=== PATIENT | female | born 1990 | race African-American/Black ===

== ENCOUNTER 2024-06-17 12:31 | Emergency (ER) | payer OTHER, SELFPAY ==
[2024-06-17 12:35] VITALS: BP 118/66; PULSE 94; RESP 14; TEMP 36.8; O2SAT 100; BMI 30.1
--- NOTE | 2024-06-17 12:57 | ED.EXTPRO ---
HPI - Extremity Problem <Clari Cordero PA-C - Last Filed: 06/17/24 13:27> General Chief complaint: Extremity Problem,Nontraumatic Stated complaint: px right glute moving to leg, 18 weeks Time Seen by Provider: 06/17/24 12:37 Source: patient Mode of arrival: Ambulatory History of Present Illness HPI Narrative: 34-year-old female currently 18 weeks presents with left gluteal pain for the last 10 days or so. She points to her left buttock. She states she is able to reproduce the pain with certain movements. She describes the pain as sharp when it comes on but is not constant. She states no disruption during sleep unless she turns over she does it slowly. The pain radiates down to about mid posterior thigh only. She is denying any back pain, no issues with bowel or bladder, no numbness, tingling, weakness, no abdominal pain, or vaginal discharge. She is full-time [employer], 16 years thus far and works at [employer]. 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 She does state she gets up and takes walks regularly however. Unfortunately she is required to wear the uniform which includes boots. This is her 1st time at [facility], she is under the care of a nurse extractor operator helper Korina here in [place]. Only treatment tried his heat, a massage gun which does help, she has taken no medication or tried ice. She is taking prenatals, she has a 20 week OB ultrasound scheduled with her extractor operator helper. Last menstrual cycle was February 12, 2024. She is with a 19-year-old. All other systems are reviewed and are negative. Related Data Allergies Allergy/AdvReac Type Severity Reaction Status Date / Time No Known Drug Allergies Allergy Verified 06/17/24 12:40 Review of Systems <Clari Cordero PA-C - Last Filed: 06/17/24 13:27> Review of Systems Narrative: All other systems reviewed and are negative. Patient History <Clari Cordero PA-C - Last Filed: 06/17/24 13:27> Social History Smoking Status: Unknown if ever smoked Smoking Status: Unknown if ever smoked alcohol intake frequency: holidays/special occasions only Substance Use Type: does not use Exam <Clari Cordero PA-C - Last Filed: 06/17/24 13:27> Initial Vital Signs Initial Vital Signs: Vital Signs Temperature 98.2 F 06/17/24 12:35 Pulse Rate 94 H 06/17/24 12:35 Respiratory Rate 14 06/17/24 12:35 Blood Pressure 118/66 06/17/24 12:35 Pulse Oximetry 100 06/17/24 12:35 Oxygen Delivery Method Room Air 06/17/24 12:35 Vital signs reviewed and are normal. Const Other: Smiling, athletic appearing, no distress. Normal gait. Resp Effort & Inspection: normal respiratory effort Auscultation: clear to auscultation bilaterally, no rales, no rhonchi and no wheezes Cardio Rate: regular rate Rhythm: regular rhythm Back/Spine/Pelvis Other: No focal bony midline tenderness, no interspace tenderness. No SI joint tenderness. Full active range of motion to the back, pain in the left buttock is reproduced with forward flexion, no guarding. Lateral bending and rotation are intact. Straight leg raise is negative bilaterally. Focal tenderness overlying the left buttock and piriformis. No mass, discoloration or guarding. Neuro Other: No focal neurologic deficits. Deep tendon reflexes are equal bilaterally 1+ at the knee jerk, ankle and plantar are downward. Sensory is grossly intact distally. Capillary refills normal. Extrem Other: Hip ROM is grossly intact, pain is reproduced with internal rotation against resistance. Mild discomfort with hip extension, no guarding. External rotation is intact, she is able to bring her ankle across the contralateral knee, and stress that piriformis. No ITB band tenderness. Hamstrings are slightly tight but no findings such as spasm. No guarding. Normal gait. Able to toe walk and heel walk. <Génesis Reyna DO - Last Filed: 06/23/24 07:42> Initial Vital Signs Initial Vital Signs: Vital Signs Temperature 98.2 F 06/17/24 12:35 Pulse Rate 94 H 06/17/24 12:35 Respiratory Rate 14 06/17/24 12:35 Blood Pressure 118/66 06/17/24 12:35 Pulse Oximetry 100 06/17/24 12:35 Oxygen Delivery Method Room Air 06/17/24 12:35 Course <Clari Cordero PA-C - Last Filed: 06/17/24 13:27> Vital Signs Vital signs: Vital Signs - 8 hr 06/17/24 12:35 Temperature 98.2 F Pulse Rate 94 H Respiratory Rate 14 Blood Pressure 118/66 Pulse Oximetry 100 Oxygen Delivery Method Room Air <Génesisbrisa ReynaDO - Last Filed: 06/23/24 07:42> Vital Signs Vital signs: Vital Signs - 8 hr 06/17/24 12:35 Temperature 98.2 F Pulse Rate 94 H Respiratory Rate 14 Blood Pressure 118/66 Pulse Oximetry 100 Oxygen Delivery Method Room Air MDM - Extremity (Nontraumatic) <Clari Cordero PA-C - Last Filed: 06/17/24 13:27> Medical Records Medical records narrative: No medical records available on site. This is her 1st visit to [facility]. MDM Narrative Medical decision making narrative: Her pain is reproducible, slightly the piriformis compressing her sciatic nerve intermittently. No focal deficits, discussed using ice directly on the buttocks, 10-15 minutes at a time several times a day. I believe she would benefit from a soft shoe profile and [place] so I have written her a note for this the [employer] is quite strict when it comes to uniform, also she smith quite a bit of dizziness from her office so I will let her command no and maybe they can accommodate her a bit closer. Discussed avoiding NSAIDs due to her gestational age, acetaminophen is a better choice. She has her massage gun, I have also placed in her discharge papers a request for physical therapy evaluation and treatment if my recollection serves me they [place] is [place]. If she requires a formal prescription she certainly can obtain this from her PCP. We discussed red flag warning signs, fall precautions, and of course following up with her PCP in the interim. Discharge Plan Departure Patient Disposition: Home Clinical Impression: Piriformis muscle pain Instructions: Piriformis Syndrome Activity Restrictions/Additional Instructions: I chose this handout as it has a good overview of the anatomy that we discussed, I would like you to try ice 10-15 minutes at a time directly over your pain. You may continue the massage gun, I am hopeful physical therapy will accept my referral for evaluation and treatment, also I am hopeful that your command will assist you with parking closer to your office, and I highly recommend a soft shoe profile as the boots are not helping your current injury. Please continue to take many work breaks, stand and stretch, walking is quite good, avoid anything that causes significant pain. Avoid nonsteroidal anti-inflammatory such as ibuprofen also known as Advil during your at this point, Tylenol is safe however. Heating pad is helpful to loosen things up but please alternate ice. I think he will find gradual improvement over time. Avoid the butterfly stretch, do a single leg stretch I demonstrated. Please seek medical attention if anything changes or worsens. Referrals: [facility] [Outside] - As soon as possible (Physical therapy evaluation and treatment for left piriformis pain) Stand Alone Forms: Patient Portal/API/Survey, Work Release Note ED Sign-out <Génesis Reyna DO - Last Filed: 06/23/24 07:42> Cosign ED Attending Amelia Attestation: I was immediately available in the department for consultation.
--- NOTE | 2024-06-17 13:02 | PC.NURSE ---
Pt seen and assessed by provider prior to this RN arrival.
[2024-06-17 13:28] VITALS: BP 119/66; PULSE 85; RESP 16; O2SAT 100
== END 2024-06-17 13:29 | disposition home or self-care (01) ==
PROVIDERS: Emergency Provider Physician Assistant Medical
DX: O26.892 Other specified pregnancy related conditions, second trimester (principal); M54.89 Other dorsalgia; Z3A.18 18 weeks gestation of pregnancy
CPT/HCPCS: 99281

== ENCOUNTER → 2024-06-30 13:53 | Outpatient (CLI) | payer OTHER, SELFPAY ==
--- NOTE | 2024-06-30 13:56 | DI.US.S_ITS ---
PROCEDURE: US OB >= 14 WEEKS FETUS INDICATIONS: 20 week anatomy scan OUTSIDE/PRIOR DATING DATA: Last menstrual period (LMP): 02/12/2024. LMP-based estimated date of delivery (OLIVE): 11/18/2024. First dating scan (date and location): 06/30/2024. Estimated date of delivery (OLIVE) from first dating scan: 11/17/2024. The calculations are made using the clinical OLIVE of 11/18/2024. TECHNIQUE: Real-time scanning was performed of the fetus, with image documentation and biometric measurements. Endovaginal scanning: Not performed COMPARISON: None. FINDINGS: General: A single living intrauterine gestation is present. Presentation: Variable. Placenta: Placental position is posterior, without previa. Amniotic fluid index: 18.8 cm, normal range is 5-24 cm. Single deepest vertical pocket is 6.1 cm. heart rate: 144 beats per minute. Maternal cervical canal: 5.7 cm long. Normal lower limit is 2.5 cm. biometrics: Biparietal diameter: 4.6 cm, 20 weeks 0 days Head circumference: 17.8 cm, 20 weeks 2 days Abdominal circumference: 14.3 cm, 19 weeks 4 days Femur length: 3.3 cm, 20 weeks 1 day Clinically estimated gestational age: 19 weeks 6 days Composite gestational age from present scan: 20 weeks 0 days Estimated weight and percentile: 321 g, 49th percentile Anatomic survey: Neuro: Ventricles are non-dilated at less than 10 mm. Cisterna magna is normal at 3-11 mm. Cerebellum is normal in size and morphology. Nuchal skin fold: Normal at less than 6 mm between 14-21 weeks gestational age. Face: Nose and lips, facial profile are normal. Spine: No evidence for spina bifida. Heart: 4-chambered heart is present, with normal ventricular outflow tracts. Diaphragm: Diaphragm is intact. Stomach: Left-sided stomach is present. Kidneys: No hydronephrosis. Normal is less than 5 mm in 2nd trimester, less than 7 mm in 3rd trimester. Cord: 3-vessel cord has orthotopic insertion. Bladder: Normal in size. Extremities: All 4 extremities identified. IMPRESSION: 1. [place] living intrauterine at 20 weeks 0 days based on today's ultrasound. Fetus is in the 49th percentile for weight. 2. Normal placenta and amniotic fluid. 3. Normal and complete anatomic survey. We strive to produce accurate, complete, and clear reports of imaging services. To assist us in improving patient care, this report was composed using standard report templates and voice recognition software. Therefore, it may contain abnormal punctuation, insertions and/or omissions. Occasional wrong-word or sound-alike substitutions may occur. Though we review the report and make efforts to correct it, we do recommend that the report be read carefully in proper context to recognize any text inaccuracies. Dictated by: Deion Mark M.D. on 06/30/2024 at 20:55 Approved by: Deion Mark M.D. on 06/30/2024 at 21:07
== END ==
PROVIDERS: Referring Provider Advanced Practice Midwife; Visit Provider Advanced Practice Midwife
DX: O09.522 Supervision of elderly multigravida, second trimester (principal); Z3A.22 22 weeks gestation of pregnancy
CPT/HCPCS: 76811

== ENCOUNTER → 2024-09-07 16:01 | Outpatient (ROUT) | payer OTHER, SELFPAY | PROVIDERS: Visit Provider Nurse Practitioner Obstetrics & Gynecology | DX: O99.019 Anemia complicating pregnancy, unspecified trimester (principal) | CPT/HCPCS: 86900; 86901 ==

== ENCOUNTER → 2024-11-04 12:32 | Outpatient (CLI) | payer OTHER, SELFPAY ==
[2024-11-04 13:06] LABS: Add Manual Diff / Slide Review NO; Basophils Absolute Auto 0 /uL (0-100); Basophils Percent Auto 0.3 % (0-2); Eosinophils Absolute Auto 100 /uL (0-450); Eosinophils Percent Auto 0.7 % (2-4); Hematocrit 32.5 % (36-46); Hemoglobin 10.6 g/dL (12.0-16.0); Lymphocytes Absolute Auto 1500 /uL (1100-4500); Mean Corpuscular HGB Conc 32.8 % (30-36); Mean Corpuscular Hemoglobin 26.9 PG (26-34); Mean Corpuscular Volume 82.2 fL (80-100); Monocytes Absolute Auto 700 /uL (0-900); Monocytes Percent Auto 6.8 % (3-14); Neutrophils Absolute Auto 7900 /uL (1500-7000); Neutrophils Percent Auto 77.2 % (50-75); Platelet Count 320 X10^3/uL (150-400); Red Blood Cell Count 3.95 X10^6/uL (4.0-5.2); Red Cell Distribution Width 17.4 % (11.6-14.8); White Blood Cell Count 10.3 X10^3/uL (4.5-11.0)
[2024-11-04 13:24] LABS: Alanine Aminotransferase 23 IU/L (<35); Albumin 3.6 g/dL (3.5-5.0); Albumin Globulin Ratio 1.1 (1.0-2.8); Alkaline Phosphatase 132 U/L (38-126); Aspartate Aminotransferase 30 IU/L (14-36); BUN Creatinine Ratio 11.1 (6-22); Bilirubin Total 0.7 mg/dL (0.2-1.3); Blood Urea Nitrogen 8 mg/dL (7-17); Calcium 9.3 mg/dL (8.4-10.2); Carbon Dioxide 20 mmol/L (22-32); Chloride 105 mmol/L (98-107); Estimated Glomerular Filt Rate > 60 mL/min (>60); Globulin 3.4 g/dL (1.7-4.1); Glucose 99 mg/dL (70-100); HEMOLYSIS < 15 (0-50); Potassium 3.6 mmol/L (3.4-5.1); Sodium 133 mmol/L (137-145)
[2024-11-05 15:44] LABS: Creatinine Urine Random 168.23 mg/dL; Protein (Total) Urine Random 11 mg/dL (0-12); Protein Creatinine Ratio Urine 0.06 GRAM/24H
== END ==
PROVIDERS: Referring Provider Nurse Practitioner Obstetrics & Gynecology; Visit Provider Nurse Practitioner Obstetrics & Gynecology
DX: Z34.93 Encounter for supervision of normal pregnancy, unspecified, third trimester (principal); R03.0 Elevated blood-pressure reading, without diagnosis of hypertension
CPT/HCPCS: 36415; 80053; 82570; 84156; 85025

== ENCOUNTER 2024-11-09 14:35 | Outpatient (CLI) | payer OTHER, SELFPAY ==
[2024-11-09 15:14] LABS: Add Manual Diff / Slide Review NO; Basophils Absolute Auto 100 /uL (0-100); Basophils Percent Auto 0.5 % (0-2); Eosinophils Absolute Auto 100 /uL (0-450); Eosinophils Percent Auto 1.2 % (2-4); Hematocrit 32.7 % (36-46); Hemoglobin 10.9 g/dL (12.0-16.0); Lymphocytes Absolute Auto 1900 /uL (1100-4500); Lymphocytes Percent Auto 17.1 % (25-40); Mean Corpuscular HGB Conc 33.4 % (30-36); Mean Corpuscular Hemoglobin 27.2 PG (26-34); Mean Corpuscular Volume 81.6 fL (80-100); Monocytes Absolute Auto 600 /uL (0-900); Monocytes Percent Auto 5.8 % (3-14); Neutrophils Absolute Auto 8200 /uL (1500-7000); Neutrophils Percent Auto 75.4 % (50-75); Platelet Count 297 X10^3/uL (150-400); Red Blood Cell Count 4.01 X10^6/uL (4.0-5.2); Red Cell Distribution Width 17.4 % (11.6-14.8); White Blood Cell Count 10.9 X10^3/uL (4.5-11.0)
[2024-11-09 15:33] LABS: Alanine Aminotransferase 23 IU/L (<35); Albumin 3.8 g/dL (3.5-5.0); Albumin Globulin Ratio 1.1 (1.0-2.8); Alkaline Phosphatase 148 U/L (38-126); Aspartate Aminotransferase 32 IU/L (14-36); BUN Creatinine Ratio 14.9 (6-22); Bilirubin Total 0.7 mg/dL (0.2-1.3); Blood Urea Nitrogen 10 mg/dL (7-17); Calcium 9.7 mg/dL (8.4-10.2); Carbon Dioxide 18 mmol/L (22-32); Chloride 105 mmol/L (98-107); Estimated Glomerular Filt Rate > 60 mL/min (>60); Globulin 3.5 g/dL (1.7-4.1); Glucose 119 mg/dL (70-100); HEMOLYSIS < 15 (0-50); Potassium 3.7 mmol/L (3.4-5.1); Sodium 134 mmol/L (137-145); Total Protein 7.3 g/dL (6.3-8.2); Uric Acid 4.4 mg/dL (2.5-6.2)
[2024-11-09 15:49] LABS: Creatinine Urine Random 91.57 mg/dL; Protein (Total) Urine Random 11 mg/dL (0-12); Protein Creatinine Ratio Urine 0.12 GRAM/24H
--- NOTE | 2024-11-09 16:21 | P.TNLD_ITS ---
Visit Information Visit Information Date of evaluation: 11/09/24 Primary OB Provider: Korina Davila Reason for Evaluation: Yes other Comments/Additional reasons for admission: Sent over from clinic after elevated BP Diastolic in the 90's. Here for serial BP, PET panel and NST. Denies headache, right epigastric pain, or visual changes. Vital Signs Vital Signs: VS: BPs 141/87, 135/86, 135/87, HR 98, O2 sat 98 PFSH Medical History (Updated 11/09/24 @ 16:35 by Korina Davila CNM, GONZALEZ) Genital HSV Surgical History History of removal of ovarian cyst Family History (Updated 11/09/24 @ 16:35 by Korina Davila CNM, GONZALEZ) Grandmother Hypertension Diabetes mellitus Mother Thyroid condition Social History (Updated 11/09/24 @ 16:36 by Korina Davila CNM, GONZALEZ) marital status: number of children: 1 household members: spouse lives independently: Yes housing: house do you feel safe at home: Yes Smoking Status: Never smoker second hand exposure: No alcohol intake: former substance use type: does not use Review of Systems Review of Systems ROS: Yes All systems reviewed with the patient and are negative except as otherwise documented Exam HENMT Head: normal to inspection and normocephalic Ears: external ears normal Nose: external nose normal Mouth: oral mucosae normal and lip normal Eyes General: appearance normal, both eyes and all related structures Alignment and Position: alignment normal Neck Neck: normal visual inspection Resp Effort & Inspection: normal respiratory effort Skin General: no rashes or lesions noted Neuro General: patient alert, patient oriented x3, gait normal and moves all extremities Extrem General: normal to inspection and full ROM Objective Labs 11/09/24 15:00 11/09/24 15:00 Labs: Laboratory Results - last 24 hr 11/09/24 11/09/24 15:00 15:05 WBC 10.9 RBC 4.01 Hgb 10.9 L Hct 32.7 L MCV 81.6 MCH 27.2 MCHC 33.4 RDW 17.4 H Plt Count 297 Neut % (Auto) 75.4 H Lymph % (Auto) 17.1 L [place] % (Auto) 5.8 Eos % (Auto) 1.2 L Baso % (Auto) 0.5 Neut # (Auto) 8200 H Lymph # (Auto) 1900 [place] # (Auto) 600 Eos # (Auto) 100 Baso # (Auto) 100 Sodium 134 L Potassium 3.7 Chloride 105 Carbon Dioxide 18 L BUN 10 Creatinine 0.67 Estimated GFR > 60 BUN/Creatinine Ratio 14.9 Glucose 119 H Uric Acid 4.4 Calcium 9.7 Total Bilirubin 0.7 AST 32 ALT 23 Alkaline Phosphatase 148 H Total Protein 7.3 Albumin 3.8 Globulin 3.5 Albumin/Globulin Ratio 1.1 U Random Total Protein 11 Urine Creatinine 91.57 Protein/Creatinin Ratio 0.12 Evaluation Evaluation Baseline heart rate: 145 Variability: Moderate (11-25) monitor accelerations: Present Monitor Decelerations: Absent Contraction Frequency (minutes): 7 (denies) Category of Tracing: Reactive Diagnosis, Plan/Disposition Plan/Disposition Plan: A: 34 yo at 38 weeks 5 days Elevated BP in office Reactive NST PET panel normal P: Instructed to call in any changes in vision, having right upper quadrant abdominal pain or headache unrelieved by tylenol. Keep CNM appt in one week, call if need seen sooner.
== END 2024-11-09 16:20 | disposition home or self-care (01) ==
LOC: LABOR 15:21 → OB 11-10 07:01
PROVIDERS: Nurse Practitioner Obstetrics & Gynecology; Referring Provider Advanced Practice Midwife; Visit Provider Advanced Practice Midwife
DX: O26.893 Other specified pregnancy related conditions, third trimester (principal); R03.0 Elevated blood-pressure reading, without diagnosis of hypertension; Z3A.38 38 weeks gestation of pregnancy
CPT/HCPCS: 36415; 59025; 80053; 84550; 85025; G0378; G0379

== ENCOUNTER 2024-11-13 15:40 | Outpatient (CLI) | payer OTHER, SELFPAY ==
[2024-11-13 15:58] LABS: Add Manual Diff / Slide Review NO; Basophils Absolute Auto 0 /uL (0-100); Basophils Percent Auto 0.3 % (0-2); Eosinophils Absolute Auto 100 /uL (0-450); Eosinophils Percent Auto 0.6 % (2-4); Hematocrit 31.7 % (36-46); Hemoglobin 10.6 g/dL (12.0-16.0); Lymphocytes Absolute Auto 2000 /uL (1100-4500); Lymphocytes Percent Auto 18.9 % (25-40); Mean Corpuscular HGB Conc 33.4 % (30-36); Mean Corpuscular Hemoglobin 27.7 PG (26-34); Mean Corpuscular Volume 82.7 fL (80-100); Monocytes Absolute Auto 1000 /uL (0-900); Monocytes Percent Auto 9.4 % (3-14); Neutrophils Absolute Auto 7500 /uL (1500-7000); Neutrophils Percent Auto 70.8 % (50-75); Platelet Count 293 X10^3/uL (150-400); Red Blood Cell Count 3.84 X10^6/uL (4.0-5.2); Red Cell Distribution Width 17.7 % (11.6-14.8); White Blood Cell Count 10.6 X10^3/uL (4.5-11.0)
[2024-11-13 16:13] LABS: Alanine Aminotransferase 20 IU/L (<35); Albumin 3.4 g/dL (3.5-5.0); Albumin Globulin Ratio 1.2 (1.0-2.8); Alkaline Phosphatase 159 U/L (38-126); Aspartate Aminotransferase 27 IU/L (14-36); BUN Creatinine Ratio 11.9 (6-22); Bilirubin Total 0.5 mg/dL (0.2-1.3); Blood Urea Nitrogen 7 mg/dL (7-17); Calcium 9.4 mg/dL (8.4-10.2); Carbon Dioxide 18 mmol/L (22-32); Chloride 106 mmol/L (98-107); Estimated Glomerular Filt Rate > 60 mL/min (>60); Globulin 2.9 g/dL (1.7-4.1); Glucose 93 mg/dL (70-100); HEMOLYSIS < 15 (0-50); Sodium 131 mmol/L (137-145); Total Protein 6.3 g/dL (6.3-8.2); Uric Acid 4.1 mg/dL (2.5-6.2)
[2024-11-13 16:29] LABS: Creatinine Urine Random 53.34 mg/dL; Protein (Total) Urine Random 16 mg/dL (0-12); Protein Creatinine Ratio Urine 0.29 GRAM/24H
--- NOTE | 2024-11-13 17:29 | P.TNLD_ITS ---
Visit Information Visit Information Date of evaluation: 11/13/24 Primary OB Provider: Briseyda Blanchard On-call OB Provider: Briseyda Blanchard Reason for Evaluation: Yes other Comments/Additional reasons for admission: Serial BPs, NST and preeclampsia labs Vital Signs Vital Signs: Annabelle is a 34 y.o. at 39 weeks 2 days by sure LMP 02/12/24 here for evaluation of blood pressure. She was seen in clinic this afternoon with elevated BP readings. No severe range blood pressures. No headache, visual changes, right upper quadrant abdomen pain or swelling. Feeling good FM. No cramping, VB or leaking of fluid. Accompanied by her partner. VS: HR 95, temp 36.3C temporal Serial BPs 144/93, 144/90, 138/92, 146/85, 149/90 PFSH Medical History (Updated 11/13/24 @ 17:50 by Briseyda Blanchard CNM) Genital HSV Surgical History History of removal of ovarian cyst Family History (Updated 11/09/24 @ 16:35 by Korina Davila CNM, GONZALEZ) Grandmother Hypertension Diabetes mellitus Mother Thyroid condition Social History (Updated 11/09/24 @ 16:36 by Korina Davila CNM, GONZALEZ) marital status: number of children: 1 household members: spouse lives independently: Yes housing: house do you feel safe at home: Yes Smoking Status: Never smoker second hand exposure: No alcohol intake: former substance use type: does not use Review of Systems Review of Systems ROS: Yes All systems reviewed with the patient and are negative except as otherwise documented Exam Vital Signs (past 8 hours): see above Presentation: vertex Objective Labs 11/13/24 15:45 11/13/24 15:45 Labs: Laboratory Results - last 24 hr 11/13/24 15:45 WBC 10.6 RBC 3.84 L Hgb 10.6 L Hct 31.7 L MCV 82.7 MCH 27.7 MCHC 33.4 RDW 17.7 H Plt Count 293 Neut % (Auto) 70.8 Lymph % (Auto) 18.9 L N[place]olls % (Auto) 9.4 Eos % (Auto) 0.6 L Baso % (Auto) 0.3 Neut # (Auto) 7500 H Lymph # (Auto) 2000 [place]oll[place] # (Auto) 1000 H Eos # (Auto) 100 Baso # (Auto) 0 Sodium 131 L Potassium 4.0 Chloride 106 Carbon Dioxide 18 L BUN 7 Creatinine 0.59 Estimated GFR > 60 BUN/Creatinine Ratio 11.9 Glucose 93 Uric Acid 4.1 Calcium 9.4 Total Bilirubin 0.5 AST 27 ALT 20 Alkaline Phosphatase 159 H Total Protein 6.3 Albumin 3.4 L Globulin 2.9 Albumin/Globulin Ratio 1.2 U Random Total Protein 16 H Urine Creatinine 53.34 Protein/Creatinin Ratio 0.29 Evaluation Evaluation Baseline heart rate: 140 Variability: Moderate (11-25) monitor accelerations: Absent Monitor Decelerations: Absent Contraction Frequency (minutes): 5 (2-6) Category of Tracing: Reactive Cervical dilation (cm): 1 Cervical effacement (%): 30 station: -2 Diagnosis, Plan/Disposition Final Diagnosis (1) Gestational hypertension: Status: Acute Plan/Disposition Plan: A: Term primipara Advanced maternal age Chronic anemia HSV- no current outbreak Gestational hypertension Reactive NST P: Recommend induction of labor for GHTN. D/t certified nurses aide, unable to admit and actively manage at this time. Informed consent for IOL obtained and reviewed options with Annabelle. Annabelle agreed to Harmon balloon placement and requested to go home and collect her belongings. Given stability of her labs and BP and no neurologic sx, this is a reasonable option. Harmon balloon placed and Annabelle to return for admission in 2-3 hours. Reviewed case with OB backup/ Dr Joseph who agreed with assessment and plan of care. OB Disposition: home
== END 2024-11-13 17:25 | disposition home or self-care (01) ==
LOC: LABOR 16:04 → OB 11-16 09:17
PROVIDERS: Referring Provider Advanced Practice Midwife; Visit Provider Advanced Practice Midwife
DX: O13.3 Gestational [pregnancy-induced] hypertension without significant proteinuria, third trimester (principal); O09.523 Supervision of elderly multigravida, third trimester; O99.013 Anemia complicating pregnancy, third trimester; D64.9 Anemia, unspecified; Z3A.39 39 weeks gestation of pregnancy
CPT/HCPCS: 59025; 80053; 84550; 85025; G0378; G0379

== ENCOUNTER 2024-11-13 20:50 | Inpatient (IN) | payer OTHER, SELFPAY ==
--- NOTE | 2024-11-13 21:02 | P.HPOB_ITS ---
OB HPI Date/Time Date of admission: 11/13/24 Date Patient Seen: 11/13/24 Time Patient Seen: 21:02 History of Present Condition Chief complaint: Induction : 2 Para: 1 Estimated Date of Delivery: 11/18/24 Estimated Gestational Age (weeks): 39.2 Narrative: Annabelle Mjaor is a 34 year old female at 39wks 2days by sure LMP here for IOL for gestational hypertension. [place] uncomfortable cramping after Harmon balloon placement and has noticed some bloody discharge. Cramping eased prior to arrival back at the hospital. +FM. No leaking fluid, PARK, vision changes, RUQ pain or increased edema. care with CNMs complicated by chronic anemia. Planning low intervention , though she is open to interventions as recommended. is present and supportive. Indications Indication for induction OB: gestational HTN/pre-eclampsia History of Present care: good care, initiated at week # (16), number of visits (10) and pounds weight gain (24) Dating criteria: based on LMP only Ultrasounds: normal mid trimester US Obstetrical complications: none Medical complications: other (anemia) Preadmission Labs Blood type: O (+) positive -: Antibody screen: negative, GBS status: positive, HBsAG: negative, HIV: negative, HSV 2: positive and RPR/VDLR: negative -: Chlamydia screen: not detected and Gonorrhea screen: not detected -: Rubella: immune and Varicella: immune HCT: 32.5 HCAB: negative Cell-free DNA: Negative x3 1 hr GTT: 100 Prior (ies) History: 1- 03/30/2015: (vaginal delivery) @ 39wks, male, Cristian Capps, Epidural, 7lbs, 7oz 2- TAB () Hx # Term Pregnancies: 1 Hx # Pregnancies: 0 Number of Living Children: 1 Multiple births: 0 Spontaneous abortions: 0 Ectopic pregnancies: 0 Elective abortions: 1 Evaluation Evaluation Baseline heart rate: 145 Variability: Average (6-10) monitor accelerations: Present Monitor Decelerations: Absent Contraction Frequency (minutes): 4 Uterine Contraction Intensity: Mild Status: Category l Dilation (cm): 4.5 Effacement (%): 60 Dilation: 3-4 cm Effacement: 60-70% station: -2 Position of cervix: posterior Consistency: soft De Santiago score: 7 Comments: Harmon balloon manually removed from vagina prior to exam PFSH Medical History Genital HSV Surgical History History of removal of ovarian cyst Family History Grandmother Hypertension Diabetes mellitus Mother Thyroid condition Social History marital status: number of children: 1 household members: spouse lives independently: Yes housing: house do you feel safe at home: Yes Smoking Status: Never smoker second hand exposure: No alcohol intake: former substance use type: does not use Meds Home Medications and Allergies Home Medications Medication Instructions Recorded Confirmed Type aspirin 81 mg tablet 81 mg PO DAILY 11/13/24 11/13/24 History vitamin with calcium 1 tab PO DAILY 11/13/24 11/13/24 History no.72-iron 27 mg-folic acid 1 mg tablet (M-Bernadette Plus) valacyclovir 500 mg tablet 500 mg PO BID 11/13/24 11/13/24 History Allergies Allergy/AdvReac Type Severity Reaction Status Date / Time No Known Drug Allergies Allergy Verified 11/13/24 21:24 Review of Systems Review of Systems ROS: Yes All systems reviewed with the patient and are negative except as otherwise documented OB Exam Vital signs Blood Pressure: 133/91 Pulse Rate: 107 Respiratory Rate: 15 Temperature: 97.2 F Resp Effort & Inspection: normal respiratory effort and able to speak in complete sentences Auscultation: clear to auscultation bilaterally Cardio Rate: regular rate Rhythm: regular rhythm Heart Sounds: S1 normal and S2 normal Extremities DTR's: Rt Brachial: 1+ and Lt Brachial: 1+ Presentation: vertex Assessment and Plan Assessment and Plan Assessment and Plan narrative: A: Term primipara AMA GHTN Anemia GBS prophylaxis indicated Cat I FHR P: Admit, routine labor orders. Recommend 2 doses of cytotec overnight as nursing staffing allows. Encourage rest overnight. Reassess in am or sooner, PRN. Time-Based Coding :: [TOTAL MINUTES] spent with patient and on the chart (including review of chart, obtaining history, exam, reviewing outside data, placing orders, documenting exam and treatment plan, and counseling patient) on [DATE].
[2024-11-13 21:18] VITALS: BP 133/91
[2024-11-13 21:47] VITALS: BP 133/91; PULSE 107
[2024-11-13 22:01] VITALS: RESP 15; TEMP 36.2
[2024-11-13 22:50] LABS: Add Manual Diff / Slide Review NO; Basophils Absolute Auto 0 /uL (0-100); Basophils Percent Auto 0.2 % (0-2); Eosinophils Absolute Auto 100 /uL (0-450); Eosinophils Percent Auto 0.6 % (2-4); Hematocrit 31.8 % (36-46); Hemoglobin 10.3 g/dL (12.0-16.0); Lymphocytes Absolute Auto 1800 /uL (1100-4500); Lymphocytes Percent Auto 14.1 % (25-40); Mean Corpuscular HGB Conc 32.3 % (30-36); Mean Corpuscular Hemoglobin 26.6 PG (26-34); Mean Corpuscular Volume 82.4 fL (80-100); Monocytes Absolute Auto 1100 /uL (0-900); Monocytes Percent Auto 8.4 % (3-14); Neutrophils Absolute Auto 9700 /uL (1500-7000); Neutrophils Percent Auto 76.7 % (50-75); Platelet Count 300 X10^3/uL (150-400); Red Blood Cell Count 3.86 X10^6/uL (4.0-5.2); Red Cell Distribution Width 17.6 % (11.6-14.8); White Blood Cell Count 12.6 X10^3/uL (4.5-11.0)
[2024-11-14] MEDS: miSOPROStoL 25 MCG TABLET 50 MCG SL (04:03)
--- NOTE | 2024-11-14 06:56 | P.PNOB_ITS ---
Date/Time Date Patient Seen: 11/14/24 Time Patient Seen: 06:56 Pain Control Pain control: tolerating well Comments: Annabelle is resting in bed. Was able to get some sleep. 1st dose of misoprostol was given at 0400 d/t physical therapy assistant instructor. Since receiving that dose, she is feeling stronger contractions like she had with the Harmon balloon with continued, scant bloody discharge. +FM. No leaking of fluid. Agreeable to AROM. VS: BP 121/72, HR 96bpm, T 35.6C Temporal Pelvic Exam Dilation (cm): 5 Effacement (%): 70 station: -2 Amniotic membrane status: Ruptured (AROM) Contractions Monitor mode: External Contraction frequency (min): 3 Contraction duration (min): 1 Contraction pattern: Irregular Contraction intensity: Mild Status status: Category l Heart Rate Baseline: 145 Monitor Accelerations: Present Monitor Decelerations: Variable (rare) Monitor Variability: Moderate Assessment and Plan Assessment: induction ongoing Plan: continuous present management Comments: Reassess in 4 hours or sooner, PRN.
[2024-11-14] MEDS: AMPICILLIN 1,000 MG in SODIUM CHLORIDE 0.9% 100 ML 200 MG IV ×3 (08:58→20:43)
[2024-11-14] MEDS: LACTATED RINGERS 1,000 ML 100 ML IV (08:59)
[2024-11-14] MEDS: fentaNYL 100 MCG/2 ML INJ IV (08:59)
--- NOTE | 2024-11-14 08:59 | PM.OBPNLAB ---
Date/Time Date Patient Seen: 11/14/24 Time Patient Seen: 09:00 Pain Control Comments: Contractions have increased in intensity and frequency since AROM. Using ball and position changes for comfort. Requesting IV pain medication now for pain relief. supportive. VS: 147/91, HR 94, Temp 36.1 C temporal, RR 17 Pelvic Exam Dilation (cm): 5 Effacement (%): 70 station: -2 Amniotic membrane status: Ruptured (AROM) Contractions Monitor mode: External Contraction frequency (min): 3 Contraction duration (min): 1 Contraction pattern: Regular Contraction intensity: Moderate Status status: Category l Heart Rate Baseline: 140 Monitor Accelerations: Present Monitor Decelerations: Absent Monitor Variability: Moderate Assessment and Plan Assessment: active labor Plan: continuous present management (IV pain medication now. Repeat hourly, PRN.) Comments: Epidural, if requested. Reassess in 4 hours or sooner, PRN.
--- NOTE | 2024-11-14 11:14 | PM.AN.REGBLK ---
Regional Block Pre-procedure Procedure: Continuous Lumbar Epidural for L&D Attending OB provider: Briseyda Blanchard PMH/ROS narrative: term IOL for GHTN, chronic anemia, H/H 10.3/31.8. No Rx indicated for BP, no evidence of preeclampsia. ASA Class: II Labs: Hct 31.8 % (36-46) L 11/13/24 22:35 Plt Count 300 X10^3/uL (150-400) 11/13/24 22:35 Medications: Current Medications Generic Name Dose Route Start Last Admin Trade Name Freq PRN Reason Stop Dose Admin Calcium Carbonate 1,000 mg 11/13/24 20:59 Calcium Carbonate 500 Mg Tab PO Q2HR PRN Dyspepsia Carboprost Tromethamine 250 mcg 11/13/24 20:59 Carboprost 250 Mcg/Ml Ampul IM Q90M PRN Bleeding Fentanyl 100 mcg 11/13/24 20:59 11/14/24 08:59 Fentanyl 100 Mcg/2 Ml Inj IV 100 mcg Q1H PRN Administration Pain, Severe (7-10) Oxytocin/Lactated Ringer's 30 unit in 500 mls @ 200 mls/hr 11/13/24 20:59 Oxytocin Premix IV CONT PRN Bleeding Protocol Tranexamic Acid 1,000 mg/ 100 mls @ 600 mls/hr 11/13/24 20:59 Sodium Chloride IV NOW PRN Bleeding Ampicillin Sodium 1,000 mg/ 100 mls @ 200 mls/hr 11/14/24 01:00 11/14/24 08:58 Sodium Chloride IV 200 mls/hr Q4H PHILLIP Administration Oxytocin/Lactated Ringer's 30 unit in 500 mls @ 2 mls/hr 11/13/24 21:00 Oxytocin Premix IV TITRATE PHILLIP Protocol 2 MILLIUNIT/MIN Lidocaine HCl 20 ml 11/13/24 20:59 Lidocaine 1% 20 Ml INJ INTRA-OP PRN Post Delivery Methylergonovine Maleate 0.2 mg 11/13/24 20:59 Methylergonovine 0.2 Mg Tablet PO Q6HR PRN Heavy Bleeding Methylergonovine Maleate 0.2 mg 11/13/24 20:59 Methylergonovine 0.2 Mg/Ml Vial IM NOW PRN Bleeding Mineral Oil 30 ml 11/13/24 20:59 Mineral Oil 30 Ml Udc TOP PRN PRN Version Misoprostol 800 mcg 11/13/24 20:59 Misoprostol 200 Mcg Tablet [place] NOW PRN Bleeding Misoprostol 400 mcg 11/13/24 20:59 Misoprostol 200 Mcg Tablet SL NOW PRN Bleeding Misoprostol 50 mcg 11/14/24 03:45 11/14/24 04:03 Misoprostol 25 Mcg Tablet SL 50 mcg Q4H PRN Administration Cervical Ripening Naloxone HCl 0.2 mg 11/13/24 20:59 Naloxone 0.4 Mg/Ml Vial IV Q2MIN PRN Opiate Reversal Ondansetron HCl 4 mg 11/13/24 20:59 Ondansetron 4 Mg/2 Ml Inj IV Q4HR PRN Nausea And Vomiting Oxytocin 10 unit 11/13/24 20:59 Oxytocin 10 Unit/Ml Vial IM NOW PRN Bleeding Allergies: Allergies Allergy/AdvReac Type Severity Reaction Status Date / Time No Known Drug Allergies Allergy Verified 11/13/24 21:24 Procedure Insertion date: 11/14/24 Insertion time: 10:58 Prep/Local: betadine x3 and 1% lidocaine Interspace: L34 Patient position: sitting Needle: 18 gauge Hustead (27g Pencan through HUstead, clear CSF, 1mL 0.25% bupiv MPF) Loss of resistance with: saline ROSA at (cm): 4 Catheter placed at SKIN (cm): 10 Catheter in SPACE (cm): 6 Insertion: No CSF, No Blood, No Paresthesia with insertion, No Paresthesia with injection and No Test dose reaction Initial Medications TEST DOSE time: 11:00 TEST DOSE: 1.5% lidocaine with epinephrine 1:200k (mL): 3 BOLUS DOSE time: 11:11 BOLUS DOSE (mL): 4 BOLUS DOSE med: other (infusate) Infusion INFUSION: 0.125% bupivacaine and with fentanyl 2 mcg/mL Initial rate (mL/hr): 8 Post-procedure Anesthesia date START: 11/14/24 Anesthesia time START: 10:45 Anesthesia date END: 11/14/24 Anesthesia time END: 21:44 Post-procedure Anesthesia Assessment: Yes CV function: HR/BP stable, Yes Resp function: RR/sat/airway adequate, Yes Post-op hydration adequate, Yes Pain control adequate, Yes Nausea & vomiting absent, Yes Temperature > 36 C, Yes Mental status appropriate and No Anesthesia complications
[2024-11-14] MEDS: AMPICILLIN 2,000 MG in SODIUM CHLORIDE 0.9% 100 ML 200 MG IV (12:40)
[2024-11-14] MEDS: LACTATED RINGERS 1,000 ML 125 ML IV ×2 (12:52→19:43)
[2024-11-14] MEDS: OXYTOCIN PREMIX 30 UNIT/500 ML PLAST..BAG IV (14:04)
[2024-11-14] MEDS: diphenhydrAMINE 50 MG/ML VIAL 25 MG IV ×2 (14:06→16:45)
--- NOTE | 2024-11-14 16:27 | PM.OBPNLAB ---
Date/Time Date Patient Seen: 11/14/24 Time Patient Seen: 16:27 Pain Control Pain control: epidural Comments: Remains comfortable with epidural, received one bolus for pain. Changing positions frequently. Leaking moderate amount of clear fluid with bloody show. Sleeping in between position changes. Tolerating oral hydration. VS:BP 126/68, HR 90, Temp 36.1C temporal Pelvic Exam Dilation (cm): 8 Effacement (%): 70 station: -1 Amniotic membrane status: Ruptured (AROM) Comments: LOP Contractions Monitor mode: External Pitocin rate (mU/min): 4 Contraction frequency (min): 3 (2-5) Contraction duration (min): 1 (1-3) Contraction pattern: Irregular (coupling ) Contraction intensity: Moderate Status status: Category ll Heart Rate Baseline: 150 Monitor Accelerations: Present Monitor Decelerations: Early and Variable Monitor Variability: Moderate Assessment and Plan Assessment: active labor, induction ongoing and other (GBS adequately treated, malpresentation) Plan: continuous present management Comments: Reassess in four hours or as needed. Encouraging position changes for malpresentation
[2024-11-14] MEDS: FENT 2MCG/ML BUPIV 0.125% EPI 200 MCG/100 ML PLAST..BAG 8 MCG EPIDURAL (17:23)
--- NOTE | 2024-11-14 19:28 | P.PNOB_ITS ---
Date/Time Date Patient Seen: 11/14/24 Time Patient Seen: 19:28 Pain Control Comments: Continued coupling of contractions. Manual rotation performed for LOP position and cervical swelling with last cervical exam. Side lying release done on both sides. Pain well controlled with epidural, feeling some rectal pressure with contractions now. Persistent variable decels with contractions despite multiple position changes. Discussed amnioinfusion for FHR and [place] is open to IUPC placement and amnioinfusion. VS: BP 139/85, HR 94, Temp 36.6C temporal, O2 sat Pelvic Exam Dilation (cm): 9 Effacement (%): 70 station: -1 Amniotic membrane status: Ruptured (AROM) Comments: Swelling in anterior portion of cervix IUPC placed Contractions Monitor mode: External Pitocin rate (mU/min): 8 Contraction frequency (min): 3 (1.5-4) Contraction duration (min): 1 (1-1.5) Contraction pattern: Irregular (coupling ) Intrauterine tone measurement: 224 (MVUs upon IUPC placement) Status status: Category ll Heart Rate Baseline: 155 Monitor Accelerations: Present Monitor Decelerations: Variable Monitor Variability: Moderate Assessment and Plan Assessment: active labor, induction ongoing and other (ROM x 13 hours no signs of infection, GHTN stable) Comments: Amnioinfusion ordered 500cc bolus and then to run at 200cc/hr. Recheck in two hours or sooner as needed.
--- NOTE | 2024-11-14 21:55 | PM.OBPRVD ---
Events: Induced HTN Labor & Delivery Delivery date: 11/14/24 Delivery Time: 21:34 Intrapartal Events: Abnormal Presentation (LOP) Cervical ripening method: per Domingo bulb protocol Induction method: AROM Delivery augmentation: pitocin Delivery monitor: external FHT and external uterine Route of delivery: Episiotomy description: None L&D Laceration Description: None Quantitative Blood Loss: 190 Anesthesia Type: Epidural Narrative: IOL for gestation hypertension with domingo, misoprostil x1, AROM, and Pitocin (max dose 8mu/min). BPs remained below severe range throughout induction. AROM clear fluid, GBS adequately treated x4 doses. LOP position resolved with multiple position changes after manual rotation. Adequate pain relief with epidural. FHR tracing Category II for persistent variables, some resolution with amnioinfusion. Labored to anterior lip and women's lacrosse coach to push at AL/C/0 with manual reduction of AL. NSVB of viable female in NANNETTE position, delivered through loose nuchal x 1. Shoulders delivered with no additional maneuvers. [place] placed on maternal abdomen for drying, stimulation and skin to skin. Remaining Pitocin (30units/500ml LR) increased to 250ml/hr for AMTSL. Cord was clamped by SNM and cut by FOB after cessation of pulsation. Cord blood was collected and sent. Placenta delivered spontaneously, apparently intact, with membranes and 3 vessel cord. Fundus immediately firm, QBL 190ml. Vagina and perineum inspected and intact. Mother and baby stable and skin to skin as I left room. Next fundal check with moderate bleeding so TXA was ordered. Straigth catheter was performed and bleeding decreased to minimal. Baby 1: gender: Female Presentation: vertex Position: Right Occiput Anterior Placenta delivery description: Spontaneous Cord Vessel Description: 3 Vessels score (1 min): 8 score (5 min): 9 weight: 3.148 kg Plan for aftercare: Routine care
[2024-11-14] MEDS: TRANEXAMIC ACID 1,000 MG in SODIUM CHLORIDE 0.9% 100 ML 600 MG IV (22:27)
[2024-11-15] MEDS: WITCH HAZEL/GLYCERIN PADS 1 EACH TOP (00:03)
[2024-11-15] MEDS: DERMOPLAST SPRAY 20% 60 ML 1 SPRAY TOP (00:04)
[2024-11-15] MEDS: LANOLIN OINT 7 GM 1 APPLIC TOP (00:04)
[2024-11-15] MEDS: KETOROLAC 30 MG/ML VIAL IV (00:05)
[2024-11-15] MEDS: ACETAMINOPHEN 325 MG TABLET 650 MG PO ×3 (04:21→16:00)
[2024-11-15] MEDS: IBUPROFEN 600 MG TABLET PO ×2 (10:20→16:00)
--- NOTE | 2024-11-15 11:31 | PM.OBDS.1 ---
Discharge Providers Provider Date of admission: 11/13/24 20:50 Discharge Date: 11/15/24 Primary care physician: Vilma GOMEZ Provider Consults: 11/15/24 21:49 Consult to Material Expediter Routine Comment: Discharge provider: Briseyda Blanchard CNM Summary Hospital Course Date Patient Seen: 11/15/24 Time Patient Seen: 11:31 Diagnoses: O80, O13.4 Hospital Course: IOL for GHTN. PPD1: Stable s/p NSVB. Voiding and ambulating independently. is difficult d/t poor latch and inability to sustain suck. Minimal pain is well controlled with PO medication. Tolerating a general diet. Vaginal bleeding is like a heavy period. Continues to deny PARK, vision changes or RUQ pain, though edema is worsening . Partner remains present and supportive. They are eager to take their baby home and feel comfortable continuing to attempt and supplementing with formula. Peripartum Data Delivery Method: Natural Vaginal Laceration Description: None Episiotomy description: None Procedures: O80 complications: none 1: Gender: Female Disposition of : home Discharge Diagnosis (1) Gestational hypertension: Status: Acute (2) Encounter for full-term uncomplicated delivery: Status: Acute Status at Discharge Cognitive/behavioral status at discharge: oriented Time Spent with Patient Time attestation: Total time spent providing and/or coordinating discharge services: Objective Labs 11/15/24 11:45 Exam Vital Signs (past 8 hours): BP 115/74, HR 80bpm, RR 16, T 98.8F Temporal, SpO2 98% on RA Const General: cooperative, healthy appearing, comfortable and well groomed Nutritional Appearance: average body habitus Orientation: alert, awake and oriented x3 Other: Fundus firm @ U-1, lochia light without clots. Perineum intact. Psych Appearance: grossly normal Mental Status: mental status grossly normal Speech and Movement: speech and movement normal Affect: normal affect Discharge Plan Discharge Plan Patient Disposition: Home Discharge orders & Medications Prescriptions: New ibuprofen 600 mg Tablet 600 mg PO Q6HR PRN (Reason: Pain, Mild (1-3)) 14 Days Qty: 60 0RF nifedipine 30 mg tablet extended release 30 mg PO DAILY 24 Days Qty: 10 2RF Continued M- Plus 27 mg iron- 1 mg tablet 1 tab PO DAILY Discontinued valacyclovir 500 mg tablet 500 mg PO BID Adult Low Dose Aspirin 81 mg Tablet 81 mg PO DAILY Follow up/Referrals: Briseyda Blanchard CNM [[facility]] - (Follow-up Saturday11/17/24 @ 0900 for a appointment briana/ Korina Follow-up Saturday11/27/24 @ 1100 for a 2-week appointment briana/ Korina FOllow-up Saturday12/28/24 @ 1pm for a 6-week appointment briana/ Briseyda) Provider,Vilma GOMEZ [Primary Care Provider] - Diet/Activity/Treatments Diet: Diet as Tolerated and Regular Activity: bed rest x 2 weeks, no heavy lifting x 6 weeks, pelvic rest x 6 weeks Other treatments: Daily home BPs, If BP increasing, will start nifedipine XR 30mg daily by mouth Skin/Wound/Dressing Care Report to your healthcare provider any signs of infection, such as:: chills, fever, increased pain, unusual drainage and unusual redness Visit Report/Discharge Packet Instructions: Depression Stand Alone Forms: Discharge: Care, Patient Portal/API, Stroke Signs & Symptoms Discharge Data Primary Care Provider: Vilma Soto
[2024-11-15 11:53] LABS: Add Manual Diff / Slide Review NO; Basophils Absolute Auto 100 /uL (0-100); Basophils Percent Auto 0.3 % (0-2); Eosinophils Absolute Auto 100 /uL (0-450); Eosinophils Percent Auto 0.5 % (2-4); Hematocrit 26.8 % (36-46); Hemoglobin 8.8 g/dL (12.0-16.0); Lymphocytes Absolute Auto 1700 /uL (1100-4500); Lymphocytes Percent Auto 7.9 % (25-40); Mean Corpuscular HGB Conc 32.7 % (30-36); Mean Corpuscular Hemoglobin 26.9 PG (26-34); Mean Corpuscular Volume 82.3 fL (80-100); Monocytes Absolute Auto 1300 /uL (0-900); Monocytes Percent Auto 6.2 % (3-14); Neutrophils Absolute Auto 18500 /uL (1500-7000); Neutrophils Percent Auto 85.1 % (50-75); Platelet Count 249 X10^3/uL (150-400); Red Blood Cell Count 3.26 X10^6/uL (4.0-5.2); Red Cell Distribution Width 17.5 % (11.6-14.8); White Blood Cell Count 21.7 X10^3/uL (4.5-11.0)
== END 2024-11-15 19:18 | disposition home or self-care (01) | DRG 806 ==
PROVIDERS: Admitting Provider Nurse Practitioner Obstetrics & Gynecology; Referring Provider Nurse Practitioner Obstetrics & Gynecology; Visit Provider Nurse Practitioner Obstetrics & Gynecology
DX: O13.4 Gestational [pregnancy-induced] hypertension without significant proteinuria, complicating childbirth (principal); O98.52 Other viral diseases complicating childbirth; Z37.0 Single live birth; Z3A.39 39 weeks gestation of pregnancy; O99.824 Streptococcus B carrier state complicating childbirth; B00.9 Herpesviral infection, unspecified; O76 Abnormality in fetal heart rate and rhythm complicating labor and delivery
CPT/HCPCS: 36415; 59025; 59050; 59200; 80053; 84550; 85025; 86850; 86900; 86901; G0378; G0379; J0290; J1200; J1885; J2590; J3010